=== PATIENT | female | born 1970 | race Caucasian/White ===

== ENCOUNTER 2018-08-01 23:06 | Emergency (ER) | payer MEDICAID ==
[~2018-08-01] VITALS: Ht 172.7 cm; Wt 90.9 kg
[~2018-08-01 23:06] MED LIST: CELEXA; IBU-TAB200 MG PO; LORTAB 5/500 501 TAB PO; MECLIZINE25 MG PO; MILK THISTLE500 MG PO; NAPROSYN500 MG PO; NORCO 325 MG-51 TAB PO; NORCO 325 MG-7.1 TAB PO; PRINIVIL20 MG PO
[2018-08-01] MEDS ORDERED: MULTI VITAMINS1 TAB PO (23:32)
[2018-08-01 23:39] LABS: COLLECTION METHOD CLEAN CATCH
[2018-08-01 23:43] LABS: BASO % 0.4 % (0.0-2.0); EOS # 0.1 (0.0-0.7); EOS % 0.7 % (0-4.0); GRAN # 6.1 (1.4-6.5); HEMATOCRIT 44.9 % (37.0-47.0); HEMOGLOBIN 15.3 g/dl (12.5-16.0); LYMPH # 4.2 (1.2-3.4); LYMPH % 37.6 % (20.0-51.0); MEAN CELL VOLUME 93 fl (80.0-100.0); MEAN CORPUSCULAR HEMOGLOBIN 32 pg (27.0-31.0); MEAN CORPUSCULAR HGB CONC 34 g/dl (33.0-37.0); MEAN PLATELET VOLUME 10.1 fl (7.4-10.4); MONO # 0.7 (0.1-0.6); PLATELET COUNT 170 K/mm3 (130-400); RED BLOOD COUNT 4.82 M/mm3 (4.10-5.30); REDCELL DISTRIBUTION WIDTH-CV 12.5 % (11.5-14.5)
[2018-08-01 23:49] LABS: ALBUMIN 4.6 gm/dL (3.5-5.0); BILIRUBIN,TOTAL 0.5 mg/dL (0.0-1.0); CALCIUM 9.9 mg/dL (8.4-10.2); CREATININE, serum 0.66 mg/dL (0.52-1.25); MAGNESIUM 2.1 mg/dL (1.6-2.3); PHOSPHOROUS 4.7 mg/dL (2.5-4.5); TOTAL PROTEIN 8.1 gm/dL (6.4-8.2)
[2018-08-02 00:05] LABS: PROLACTIN 21.3 ng/mL (3.0-18.6)
[2018-08-02 00:11] LABS: TRICYCLIC ANTIDEPRESS URINE NEGATIVE
[2018-08-02 00:25] LABS: PH 6 (5-8); SQUAMOUS EPITHELIAL None Seen /hpf; URINE APPEARANCE Clear; URINE BACTERIA Rare /hpf; URINE BILIRUBIN Negative (NEGATIVE); URINE BLOOD 1+ (NEGATIVE); URINE COLOR Colorless; URINE GLUCOSE Negative (NEGATIVE); URINE KETONE Negative (NEGATIVE); URINE LEUKOCYTE ESTERASE Negative (NEGATIVE); URINE NITRATE Negative (NEGATIVE); URINE PROTEIN(semi-quant) Negative (NEGATIVE); URINE RBC None Seen /hpf; URINE UROBILINOGEN Negative (NEGATIVE)
[2018-08-02 01:18] VITALS: TEMP 97.7
[2018-08-02] MEDS ORDERED: KEPPRA 500MG500 MG PO (01:33)
[2018-08-02 06:03] VITALS: BP 109/64; PULSE 86
== END 2018-08-02 06:05 | disposition home or self-care (01) ==
LOC: COL.ER 23:06
PROVIDERS: Emergency Medicine
DX: G40.909 Epilepsy, unspecified, not intractable, without status epilepticus (principal); F10.129 Alcohol abuse with intoxication, unspecified; I10 Essential (primary) hypertension; Z90.49 Acquired absence of other specified parts of digestive tract; Y90.8 Blood alcohol level of 240 mg/100 ml or more
CPT/HCPCS: J1953; J2060; J2405; J7030

== ENCOUNTER 2018-11-20 21:59 | Emergency (ER) | payer MEDICAID ==
[~2018-11-20] VITALS: Ht 172.7 cm; Wt 93.6 kg
[~2018-11-20 21:59] MED LIST changes: +KEPPRA 500MG500 MG PO; +MULTI VITAMINS1 TAB PO
[2018-11-20 22:22] LABS: BASO % 0.3 % (0.0-2.0); EOS # 0.1 (0.0-0.7); EOS % 0.8 % (0-4.0); GRAN # 5.3 (1.4-6.5); GRAN % 58.5 % (42.2-75.2); HEMATOCRIT 41.9 % (37.0-47.0); HEMOGLOBIN 14.1 g/dl (12.5-16.0); MEAN CELL VOLUME 95 fl (80.0-100.0); MEAN CORPUSCULAR HEMOGLOBIN 32 pg (27.0-31.0); MEAN CORPUSCULAR HGB CONC 34 g/dl (33.0-37.0); MEAN PLATELET VOLUME 10.7 fl (7.4-10.4); MONO # 0.6 (0.1-0.6); MONO % 7.1 % (1.7-9.3); PLATELET COUNT 156 K/mm3 (130-400); RED BLOOD COUNT 4.41 M/mm3 (4.10-5.30); REDCELL DISTRIBUTION WIDTH-CV 12.3 % (11.5-14.5)
[2018-11-20 22:33] LABS: ALBUMIN 4.2 gm/dL (3.5-5.0); BILIRUBIN,TOTAL 0.5 mg/dL (0.0-1.0); CALCIUM 9.6 mg/dL (8.4-10.2); CREATININE, serum 0.52 (0.52-1.25); POTASSIUM 3.7 mmol/L (3.4-5.0); TOTAL PROTEIN 7.7 gm/dL (6.4-8.2)
[2018-11-20 22:50] LABS: PROLACTIN 57.8 ng/mL (3.0-18.6)
[2018-11-20 23:38] VITALS: BP 117/68; PULSE 77
== END 2018-11-20 23:25 | disposition home or self-care (01) ==
LOC: COL.ER 21:59
PROVIDERS: Emergency Medicine
DX: F10.129 Alcohol abuse with intoxication, unspecified (principal); I10 Essential (primary) hypertension; Z90.49 Acquired absence of other specified parts of digestive tract; Z98.890 Other specified postprocedural states; G40.909 Epilepsy, unspecified, not intractable, without status epilepticus; Y90.7 Blood alcohol level of 200-239 mg/100 ml

== ENCOUNTER 2018-12-01 12:44 | Emergency (ER) | payer MEDICAID ==
[~2018-12-01] VITALS: Ht 172.7 cm; Wt 94.1 kg
[2018-12-01 12:48] VITALS: BP 120/75; TEMP 96.4
[2018-12-01 13:51] VITALS: PULSE 82
== END 2018-12-01 13:53 | disposition home or self-care (01) ==
LOC: COL.ER 12:44
DX: M25.572 Pain in left ankle and joints of left foot (principal); Z90.49 Acquired absence of other specified parts of digestive tract; Z98.51 Tubal ligation status

== ENCOUNTER 2019-02-07 22:01 | Emergency (ER) | payer MEDICAID ==
[~2019-02-07] VITALS: Ht 172.7 cm; Wt 92.7 kg
[2019-02-07 22:05] VITALS: BP 126/82; TEMP 97.2
[2019-02-07] MEDS ORDERED: CELEXA 20MG20 MG/TAB PO (22:50)
[2019-02-07] MEDS ORDERED: PRINZIDE 12.5 M1 TA1 PO (22:50)
[2019-02-07] MEDS ORDERED: KEPPRA250 MG PO (22:50)
[2019-02-07] MEDS ORDERED: NORCO 325 MG-51 TAB PO (23:10)
[2019-02-07 23:29] VITALS: PULSE 94
== END 2019-02-07 23:30 | disposition home or self-care (01) ==
LOC: COL.ER 22:01
DX: S92.351A Displaced fracture of fifth metatarsal bone, right foot, initial encounter for closed fracture (principal); W22.8XXA Striking against or struck by other objects, initial encounter; Y92.009 Unspecified place in unspecified non-institutional (private) residence as the place of occurrence of the external cause

== ENCOUNTER 2019-05-12 13:48 | Emergency (ER) | payer SELFPAY ==
[~2019-05-12] VITALS: Ht 172.7 cm; Wt 90.9 kg
[~2019-05-12 13:48] MED LIST changes: +CELEXA 20MG20 MG/TAB PO; +KEPPRA250 MG PO; +PRINZIDE 12.5 M1 TA1 PO
[2019-05-12 13:52] VITALS: BP 138/89; TEMP 100.4
[2019-05-12] MEDS ORDERED: NEURONTIN300 MG/CAP PO (14:06)
[2019-05-12] MEDS ORDERED: DOXYCYCLINE 10100 MG PO ×2 (15:10→16:47)
[2019-05-12] MEDS ORDERED: AUGMENTIN XR 101 TER PO (15:10)
[2019-05-12 15:16] LABS: BASO % 0.5 % (0.0-2.0); EOS % 0.4 % (0-4.0); GRAN # 5.6 (1.4-6.5); GRAN % 69.5 % (42.2-75.2); HEMATOCRIT 44.3 % (37.0-47.0); HEMOGLOBIN 15.4 g/dl (12.5-16.0); LYMPH # 1.6 (1.2-3.4); LYMPH % 19.8 % (20.0-51.0); MEAN CELL VOLUME 91 fl (80.0-100.0); MEAN CORPUSCULAR HEMOGLOBIN 32 pg (27.0-31.0); MEAN CORPUSCULAR HGB CONC 35 g/dl (33.0-37.0); MEAN PLATELET VOLUME 10.4 fl (7.4-10.4); MONO # 0.8 (0.1-0.6); MONO % 9.6 % (1.7-9.3); PLATELET COUNT 142 K/mm3 (130-400); RED BLOOD COUNT 4.86 M/mm3 (4.10-5.30)
[2019-05-12 15:28] LABS: ALBUMIN 4.5 gm/dL (3.5-5.0); BILIRUBIN,TOTAL 0.8 mg/dL (0.0-1.0); CALCIUM 9.6 mg/dL (8.4-10.2); CREATININE, serum 0.65 (0.52-1.25); POTASSIUM 3.3 mmol/L (3.4-5.0); TOTAL PROTEIN 8.1 gm/dL (6.4-8.2)
[2019-05-12] MEDS ORDERED: ZOFRAN 4MG T4 MG/TAB PO ×2 (15:42→16:47)
[2019-05-12] MEDS ORDERED: AMOXICILLIN 8751 TAB PO (16:47)
[2019-05-12 16:59] VITALS: PULSE 96
--- NOTE | 2019-05-13 15:28 | NUR ---
(05/12) [employer] student and health care social worker responded to a health care social worker consult to the ED for a medication voucher. The patient reports she is no longer employed and sent recertification paperwork to Medicaid. A medication voucher was provided to [employer] in the amount of $270.69. On this day [employer] student contact Madhavi, financial counselor. Madhavi reports the patient's Medicaid is not active. [employer] student attempted to contact the patient to advise her of her Medicaid status. [employer] student left a message.
== END 2019-05-12 16:59 | disposition home or self-care (01) ==
LOC: COL.ER 13:48
PROVIDERS: Emergency Medicine
DX: J18.1 Lobar pneumonia, unspecified organism (principal); I10 Essential (primary) hypertension; Z90.710 Acquired absence of both cervix and uterus
CPT/HCPCS: J7030

== ENCOUNTER 2019-12-02 20:52 | Emergency (ER) | payer MEDICAID ==
[~2019-12-02] VITALS: Ht 172.7 cm; Wt 89.5 kg
[~2019-12-02 20:52] MED LIST changes: +AMOXICILLIN 8751 TAB PO; +AUGMENTIN XR 101 TER PO; +DOXYCYCLINE 10100 MG PO; +NEURONTIN300 MG/CAP PO; +ZOFRAN 4MG T4 MG/TAB PO
[2019-12-02 20:56] VITALS: BP 117/79; TEMP 97.7
[2019-12-02 21:45] VITALS: PULSE 90
== END 2019-12-02 21:50 | disposition home or self-care (01) ==
LOC: COL.ER 20:52
DX: S90.122A Contusion of left lesser toe(s) without damage to nail, initial encounter (principal); I10 Essential (primary) hypertension; F17.210 Nicotine dependence, cigarettes, uncomplicated; Z86.69 Personal history of other diseases of the nervous system and sense organs; W22.8XXA Striking against or struck by other objects, initial encounter; Y92.009 Unspecified place in unspecified non-institutional (private) residence as the place of occurrence of the external cause

== ENCOUNTER → 2020-02-23 | Outpatient (CLI) | payer MEDICAID | LOC: COL.RAD 08:30 | DX: G62.89 Other specified polyneuropathies (principal); M54.17 Radiculopathy, lumbosacral region; M70.71 Other bursitis of hip, right hip; M70.72 Other bursitis of hip, left hip; M51.36 Other intervertebral disc degeneration, lumbar region; M41.86 Other forms of scoliosis, lumbar region; M48.07 Spinal stenosis, lumbosacral region ==

== ENCOUNTER → 2020-04-24 | Outpatient (CLI) | payer OTHER | LOC: COL.LAB 09:00 → COL.RAD 09:18 | DX: Z02.71 Encounter for disability determination (principal); M25.572 Pain in left ankle and joints of left foot; Z98.1 Arthrodesis status ==

== ENCOUNTER 2020-11-30 07:35 | Day surgery (SDC) | payer MEDICAID ==
[~2020-11-30] VITALS: Ht 172.7 cm; Wt 93.4 kg
[2020-11-30] MEDS ORDERED: VITAMIN D250 MCG PO (07:51)
[2020-11-30] MEDS ORDERED: B-121000 MCG PO (07:52)
[2020-11-30] MEDS ORDERED: MAGNESIUM200 MG PO (07:52)
[2020-11-30 08:28] VITALS: BP 108/84; PULSE 79; TEMP 98.4
[2020-11-30 09:05] VITALS: BP 99/52; PULSE 72; TEMP 97.2
[2020-11-30 09:20] VITALS: BP 104/56; PULSE 62
--- NOTE | 2020-11-30 09:26 | NUR ---
0905 PATIENT ARRIVES TO [facility] VIA CART. AMBUL[place] [facility] WITH [facility]. PATIENT'S SPOUSE IS AT CHAIRSIDE. VSS. REPORT AND CARE OF PATIENT RECEIVED FROM [facility]. PATIENT REQUESTS JEYSON AND ASHISH. 09 PATIENT TOLERATED PO WELL. DENIES COMPLAINT. VSS.
[2020-11-30 09:35] VITALS: BP 109/86; PULSE 57
--- NOTE | 2020-11-30 09:40 | NUR ---
0930 IV D/C'D. TOLERATED WELL. D/C INSTRUCTIONS, VERBAL AND WRITTEN. PATIENT VERBALIZED UNDERSTANDING. QUESTIONS INVITED AND ANSWERED. VSS.
--- NOTE | 2020-11-30 09:41 | NUR ---
0944 D/C'D TO POV VIA W/C WITH PATIENT'S SPOUSE.
== END 2020-11-30 09:44 | disposition home or self-care (01) ==
LOC: SDCO 07:35
DX: Z12.11 Encounter for screening for malignant neoplasm of colon (principal); I10 Essential (primary) hypertension; G62.9 Polyneuropathy, unspecified; F17.210 Nicotine dependence, cigarettes, uncomplicated; F41.9 Anxiety disorder, unspecified; F32.9 Major depressive disorder, single episode, unspecified; Z20.822 Contact with and (suspected) exposure to COVID-19; G40.909 Epilepsy, unspecified, not intractable, without status epilepticus; G57.20 Lesion of femoral nerve, unspecified lower limb; Z68.30 Body mass index [BMI] 30.0-30.9, adult; E66.9 Obesity, unspecified; Z79.1 Long term (current) use of non-steroidal anti-inflammatories (NSAID); Z79.899 Other long term (current) drug therapy
CPT/HCPCS: J2704; J7120

== ENCOUNTER 2021-05-06 03:55 | Emergency (ER) | payer MEDICAID ==
[~2021-05-06] VITALS: Ht 172.7 cm; Wt 87.7 kg
[~2021-05-06 03:55] MED LIST changes: +B-121000 MCG PO; +MAGNESIUM200 MG PO; +VITAMIN D250 MCG PO
[2021-05-06 03:57] VITALS: TEMP 97
[2021-05-06 04:23] LABS: BASO % 0.4 % (0.0-2.0); EOS # 0.1 K/mm3 (0.0-0.7); EOS % 1.2 % (0-4.0); GRAN # 4.8 K/mm3 (1.4-6.5); GRAN % 51.3 % (42.2-75.2); HEMATOCRIT 41.7 % (37.0-47.0); HEMOGLOBIN 14.3 g/dl (12.5-16.0); LYMPH # 3.8 K/mm3 (1.2-3.4); LYMPH % 40.7 % (20.0-51.0); MEAN CELL VOLUME 92 fl (80.0-100.0); MEAN CORPUSCULAR HEMOGLOBIN 32 pg (27.0-31.0); MEAN CORPUSCULAR HGB CONC 34 g/dl (33.0-37.0); MEAN PLATELET VOLUME 9.8 fl (7.4-10.4); MONO # 0.6 K/mm3 (0.1-0.6); MONO % 6.1 % (1.7-9.3); PLATELET COUNT 181 K/mm3 (130-400); RED BLOOD COUNT 4.52 M/mm3 (4.10-5.30)
[2021-05-06 04:48] LABS: BILIRUBIN,TOTAL 0.5 mg/dL (0.2-1.2); CALCIUM 9.5 mg/dL (8.4-10.2); CREATININE, serum 0.74 mg/dL (0.57-1.11); POTASSIUM 3.8 mmol/L (3.5-4.5); TOTAL PROTEIN 7.6 gm/dL (6.2-8.1)
[2021-05-06] MEDS ORDERED: KEPPRA250 MG PO (04:53)
[2021-05-06 06:14] VITALS: BP 134/78; PULSE 71
== END 2021-05-06 06:15 | disposition home or self-care (01) ==
LOC: COL.ER 03:55
PROVIDERS: Emergency Medicine
DX: G40.909 Epilepsy, unspecified, not intractable, without status epilepticus (principal); I10 Essential (primary) hypertension; F41.9 Anxiety disorder, unspecified; Z32.02 Encounter for pregnancy test, result negative; Z79.899 Other long term (current) drug therapy
CPT/HCPCS: J1953; J2060; J7030

== ENCOUNTER 2021-08-18 08:04 | Emergency (ER) | payer MEDICAID ==
[~2021-08-18] VITALS: Ht 172.7 cm; Wt 90.0 kg
[2021-08-18 08:08] VITALS: TEMP 97.9
[2021-08-18] MEDS ORDERED: FLEXERIL 1010 MG/TAB PO (08:41)
[2021-08-18] MEDS ORDERED: MOTRIN 800800 MG/TAB PO (08:41)
[2021-08-18] MEDS ORDERED: PERCOCET 325 MG1 TA2 PO (08:41)
[2021-08-18 08:57] VITALS: BP 123/73; PULSE 78
== END 2021-08-18 08:57 | disposition home or self-care (01) ==
LOC: COL.ER 08:04
DX: M54.16 Radiculopathy, lumbar region (principal); I10 Essential (primary) hypertension; F41.9 Anxiety disorder, unspecified; G62.9 Polyneuropathy, unspecified; F17.210 Nicotine dependence, cigarettes, uncomplicated; Z79.899 Other long term (current) drug therapy

== ENCOUNTER 2021-08-28 07:51 | Emergency (ER) | payer MEDICAID ==
[~2021-08-28] VITALS: Ht 172.7 cm; Wt 89.5 kg
[~2021-08-28 07:51] MED LIST changes: +FLEXERIL 1010 MG/TAB PO; +MOTRIN 800800 MG/TAB PO; +PERCOCET 325 MG1 TA2 PO
[2021-08-28 08:14] VITALS: TEMP 98.1
[2021-08-28] MEDS ORDERED: LIDODERM 5% PATC1 EA TP (08:35)
[2021-08-28] MEDS ORDERED: ROBAXIN 75750 MG/TAB PO (08:35)
[2021-08-28] MEDS ORDERED: MEDROL 4MG DOSPA4 MG PO (08:35)
[2021-08-28] MEDS ORDERED: NORCO 325 MG-51 TAB PO (08:35)
[2021-08-28 08:43] VITALS: BP 120/79; PULSE 93
== END 2021-08-28 08:43 | disposition home or self-care (01) ==
LOC: COL.ER 07:51
DX: M54.50 Low back pain, unspecified (principal); I10 Essential (primary) hypertension; F41.9 Anxiety disorder, unspecified; F17.200 Nicotine dependence, unspecified, uncomplicated; Z79.899 Other long term (current) drug therapy

== ENCOUNTER 2021-09-09 03:44 | Emergency (ER) | payer MEDICAID ==
[~2021-09-09] VITALS: Ht 172.7 cm; Wt 89.5 kg
[~2021-09-09 03:44] MED LIST changes: +LIDODERM 5% PATC1 EA TP; +MEDROL 4MG DOSPA4 MG PO; +ROBAXIN 75750 MG/TAB PO
[2021-09-09 03:45] VITALS: TEMP 97.8
[2021-09-09] MEDS ORDERED: KEPPRA250 MG PO (04:23)
[2021-09-09 04:39] VITALS: BP 107/63; PULSE 83
== END 2021-09-09 04:39 | disposition home or self-care (01) ==
LOC: COL.ER 03:44
DX: G40.909 Epilepsy, unspecified, not intractable, without status epilepticus (principal); I10 Essential (primary) hypertension; Z79.899 Other long term (current) drug therapy
CPT/HCPCS: J1953

== ENCOUNTER 2021-12-03 10:07 | Emergency (ER) | payer MEDICARE, MEDICAID ==
[~2021-12-03] VITALS: Ht 172.7 cm; Wt 89.5 kg
[2021-12-03 12:44] VITALS: BP 136/64; PULSE 67; TEMP 98.4
[2021-12-03] MEDS ORDERED: NAPROSYN500 MG PO (12:44)
== END 2021-12-03 12:51 | disposition home or self-care (01) ==
LOC: COL.ER 10:07
DX: M25.561 Pain in right knee (principal); F17.200 Nicotine dependence, unspecified, uncomplicated
CPT/HCPCS: J1885

== ENCOUNTER 2021-12-05 22:47 | Emergency (ER) | payer MEDICARE, MEDICAID ==
[~2021-12-05] VITALS: Ht 172.7 cm; Wt 89.5 kg
[2021-12-05 22:49] VITALS: TEMP 98.1
[2021-12-05 23:32] VITALS: BP 112/78; PULSE 76
== END 2021-12-05 23:32 | disposition home or self-care (01) ==
LOC: COL.ER 22:47
DX: R56.9 Unspecified convulsions (principal); Z28.310 Unvaccinated for COVID-19

== ENCOUNTER 2022-02-16 12:15 | Emergency (ER) | payer MEDICARE, MEDICAID ==
[~2022-02-16] VITALS: Ht 172.7 cm; Wt 87.3 kg
[2022-02-16 12:35] VITALS: BP 142/91; TEMP 98.1
[2022-02-16] MEDS ORDERED: DOXYCYCLINE HY100 MG PO (13:42)
[2022-02-16] MEDS ORDERED: FLAGYL500 MG PO (13:42)
[2022-02-16 14:20] VITALS: PULSE 76
== END 2022-02-16 14:20 | disposition home or self-care (01) ==
LOC: COL.ER 12:15
DX: N73.9 Female pelvic inflammatory disease, unspecified (principal); F17.210 Nicotine dependence, cigarettes, uncomplicated; Z88.1 Allergy status to other antibiotic agents
CPT/HCPCS: J0696

== ENCOUNTER → 2022-02-21 | Outpatient (CLI) | payer MEDICARE, MEDICAID ==
[~2022-02-21] MED LIST changes: +DOXYCYCLINE HY100 MG PO; +FLAGYL500 MG PO
== END ==
LOC: COL.RAD 11:29
DX: R31.9 Hematuria, unspecified (principal)

== ENCOUNTER 2022-04-12 14:07 | Emergency (ER) | payer MEDICARE, MEDICAID | END 2022-04-12 14:29 | disposition left against medical advice (07) | LOC: COL.ER 14:07 | DX: R69 Illness, unspecified (principal) ==

== ENCOUNTER 2022-04-18 08:27 | Observation (INO) | payer MEDICARE, MEDICAID ==
[~2022-04-18] VITALS: Ht 172.7 cm; Wt 87.3 kg
[2022-04-18 09:47] LABS: BASO % 0.4 % (0.0-2.0); EOS # 0.2 K/mm3 (0.0-0.7); EOS % 2.3 % (0.0-4.0); GRAN # 4.5 K/mm3 (1.4-6.5); GRAN % 58.4 % (42.2-75.2); HEMATOCRIT 39.9 % (37.0-47.0); HEMOGLOBIN 13.8 g/dl (12.5-16.0); LYMPH # 2.3 K/mm3 (1.2-3.4); LYMPH % 29.8 % (20.0-51.0); MEAN CELL VOLUME 91 fl (80.0-100.0); MEAN CORPUSCULAR HEMOGLOBIN 32 pg (27-31); MEAN CORPUSCULAR HGB CONC 35 g/dl (33.0-37.0); MEAN PLATELET VOLUME 10.5 fl (7.4-10.4); MONO # 0.7 K/mm3 (0.1-0.6); MONO % 8.7 % (1.7-9.3); PLATELET COUNT 159 K/mm3 (130-400); RED BLOOD COUNT 4.37 M/mm3 (4.10-5.30); REDCELL DISTRIBUTION WIDTH-CV 12.5 % (11.5-14.5)
[2022-04-18 09:53] LABS: ANION GAP 8 mmol/L (7-16); BLOOD UREA NITROGEN 15 mg/dL (10-20); CALCIUM 9.6 mg/dL (8.4-10.2); CARBON DIOXIDE 28 mmol/L (22-29); CHLORIDE 105 mmol/L (98-107); CREATININE, serum 0.76 mg/dL (0.57-1.11); GLUCOSE 89 mg/dL (70-99); POTASSIUM 4.2 mmol/L (3.5-4.5); SODIUM 141 mmol/L (136-145)
[2022-04-18 10:02] LABS: TROPONIN-I < 0.010 ng/mL (0.00-0.033)
[2022-04-18 14:55] VITALS: BP 138/74; PULSE 74; TEMP 98.1
[2022-04-18] MEDS ORDERED: VITAMIND3 5000 PO (15:12)
--- NOTE | 2022-04-18 15:20 | NUR ---
PATIENT PASSED SWALLOW EVAL. WATER WITH/WITHOUT STRAW, APPLESAUCE, CRACKERS, ALL TOLDERATED WITH OUT ANY ISSUES OR COUGHING. PER ORDER DIET PLACED
[2022-04-18] MEDS ORDERED: AMITRIPTYLINE H25 M1 PO (17:15)
[2022-04-18] MEDS ORDERED: ATARAX 10MG10 MG/TAB PO (17:16)
--- NOTE | 2022-04-18 18:45 | NUR ---
PATIENT RESTING IN BED WITH NO COMPLAINTS OR NEEDS AT THIS TIME. FAMILY IN ROOM. BELONGINGS AND CALL LIGHT WITHIN REACH. REPORT GIVEN TO NIGHT RN.
[2022-04-18 19:26] VITALS: BP 134/97; PULSE 90; TEMP 97.6
--- NOTE | 2022-04-18 22:29 | NUR ---
Patient assessed at approximately 1920. Had complained of severe headache. Called Ayde, and received new order for PRN Acetaminophen, and given per orders. Denies any other pain and discomfort. Peripheral INT to right AC. Denies SOB and dyspnea. Telemetry in place. Has been able to ambulate to bathroom, gate slow, but steady. Denies havig any other questions, needs, or concerns at this time. In bed with call light within reach.
[2022-04-18 23:40] VITALS: BP 138/88; PULSE 96; TEMP 98.3
[2022-04-19 04:11] VITALS: BP 121/73; PULSE 102; TEMP 99.1
[2022-04-19 05:43] LABS: BASO % 0.3 % (0.0-2.0); EOS % 0.4 % (0.0-4.0); GRAN # 8.5 K/mm3 (1.4-6.5); GRAN % 82.4 % (42.2-75.2); HEMATOCRIT 41.4 % (37.0-47.0); HEMOGLOBIN 14.3 g/dl (12.5-16.0); LYMPH # 0.9 K/mm3 (1.2-3.4); LYMPH % 8.8 % (20.0-51.0); MEAN CELL VOLUME 91 fl (80.0-100.0); MEAN CORPUSCULAR HEMOGLOBIN 31 pg (27-31); MEAN CORPUSCULAR HGB CONC 35 g/dl (33.0-37.0); MEAN PLATELET VOLUME 10.7 fl (7.4-10.4); MONO # 0.8 K/mm3 (0.1-0.6); MONO % 7.8 % (1.7-9.3); PLATELET COUNT 145 K/mm3 (130-400); RED BLOOD COUNT 4.56 M/mm3 (4.10-5.30); REDCELL DISTRIBUTION WIDTH-CV 12.5 % (11.5-14.5)
--- NOTE | 2022-04-19 05:53 | NUR ---
Patient's symptoms of numbness and tingling have resolved during the night. Denies numbness and tingling, as well as weakness to BUE and BLE. Voices no questions, needs, or concerns at this time. Denies having pain and discomfort. In bed with call light within reach.
[2022-04-19 06:05] LABS: CALCIUM 9.4 mg/dL (8.4-10.2); CHOLESTEROL RISK RATIO 4.3; CREATININE, serum 0.73 mg/dL (0.57-1.11)
[2022-04-19 07:09] VITALS: BP 109/75; PULSE 96; TEMP 98.9
--- NOTE | 2022-04-19 08:00 | NUR ---
Patient laying in bed, A&Ox4. VSS. IV CDI. Reports having a headache. Denies all other pain and discomfort. No further needs expressed. Call light within reach.
--- NOTE | 2022-04-19 10:00 | NUR ---
Discharge paperwork reviewed with the patient. Patient verbalized an understanding to follow doctors orders. IV removed, tip intact. Patient walked independently with nursing staff to vehicle. No further needs expressed.
--- NOTE | 2022-04-19 12:38 | NUR ---
Primary nurse was assisted with [id number] patient care by [employer] student Hilda Porter and [employer] instructor Britt SUNG RN.
== END 2022-04-19 10:00 | disposition home or self-care (01) ==
LOC: COL.ER 08:27 → MEDICAL 14:02
PROVIDERS: Physician Assistant; ADMIT Emergency Medicine
DX: R20.0 Anesthesia of skin (principal); R00.2 Palpitations; J01.30 Acute sphenoidal sinusitis, unspecified; I10 Essential (primary) hypertension; G40.909 Epilepsy, unspecified, not intractable, without status epilepticus; G62.9 Polyneuropathy, unspecified; N30.10 Interstitial cystitis (chronic) without hematuria; F17.210 Nicotine dependence, cigarettes, uncomplicated; I37.1 Nonrheumatic pulmonary valve insufficiency; Z79.899 Other long term (current) drug therapy
CPT/HCPCS: A9575; G0378; Q9967

== ENCOUNTER 2022-11-01 00:37 | Emergency (ER) | payer MEDICARE, MEDICAID ==
[~2022-11-01] VITALS: Ht 172.7 cm; Wt 90.9 kg
[~2022-11-01 00:37] MED LIST changes: +AMITRIPTYLINE H25 M1 PO; +ATARAX 10MG10 MG/TAB PO; +VITAMIND3 5000 PO
[2022-11-01 00:38] VITALS: TEMP 97.8
[2022-11-01 01:00] LABS: BASO # 0.1 K/mm3 (0.0-0.2); BASO % 0.5 % (0.0-2.0); EOS # 0.1 K/mm3 (0.0-0.7); EOS % 0.6 % (0.0-4.0); GRAN # 5.7 K/mm3 (1.4-6.5); GRAN % 55.4 % (42.2-75.2); HEMATOCRIT 39.9 % (37.0-47.0); LYMPH # 3.8 K/mm3 (1.2-3.4); LYMPH % 36.8 % (20.0-51.0); MEAN CELL VOLUME 93 fl (80.0-100.0); MEAN CORPUSCULAR HEMOGLOBIN 33 pg (27-31); MEAN CORPUSCULAR HGB CONC 35 g/dl (33.0-37.0); MEAN PLATELET VOLUME 10.3 fl (7.4-10.4); MONO # 0.6 K/mm3 (0.1-0.6); MONO % 6.1 % (1.7-9.3); PLATELET COUNT 210 K/mm3 (130-400); RED BLOOD COUNT 4.31 M/mm3 (4.10-5.30); REDCELL DISTRIBUTION WIDTH-CV 12.4 % (11.5-14.5)
[2022-11-01 01:16] LABS: ALBUMIN 3.9 gm/dL (3.5-5.0); BILIRUBIN,TOTAL 0.4 mg/dL (0.2-1.2); CALCIUM 9.5 mg/dL (8.4-10.2); CREATININE, serum 0.83 mg/dL (0.57-1.11); POTASSIUM 3.4 mmol/L (3.5-4.5); TOTAL PROTEIN 7.4 gm/dL (6.2-8.1)
[2022-11-01 01:36] VITALS: BP 105/76; PULSE 74
== END 2022-11-01 01:36 | disposition home or self-care (01) ==
LOC: COL.ER 00:37
PROVIDERS: Personal Emergency Response Attendant
DX: R56.9 Unspecified convulsions (principal); F10.129 Alcohol abuse with intoxication, unspecified; F17.200 Nicotine dependence, unspecified, uncomplicated; Y90.8 Blood alcohol level of 240 mg/100 ml or more; Z91.14 Patient's other noncompliance with medication regimen

== ENCOUNTER 2024-02-14 23:33 | Emergency (ER) | payer SELFPAY ==
[~2024-02-14] VITALS: Ht 172.7 cm; Wt 81.8 kg
[2024-02-14 23:34] VITALS: TEMP 97.5
[2024-02-14 23:46] LABS: BASO % 0.4 % (0.0-2.0); EOS # 0.1 K/mm3 (0.0-0.7); EOS % 0.6 % (0.0-4.0); GRAN # 4.2 K/mm3 (1.4-6.5); GRAN % 53.5 % (42.2-75.2); HEMATOCRIT 42.3 % (37.0-47.0); HEMOGLOBIN 14.3 g/dl (12.5-16.0); LYMPH # 3.1 K/mm3 (1.2-3.4); LYMPH % 39.8 % (20.0-51.0); MEAN CELL VOLUME 94 fl (80.0-100.0); MEAN CORPUSCULAR HEMOGLOBIN 32 pg (27-31); MEAN CORPUSCULAR HGB CONC 34 g/dl (33.0-37.0); MONO # 0.4 K/mm3 (0.1-0.6); MONO % 5.6 % (1.7-9.3); PLATELET COUNT 185 K/mm3 (130-400); RED BLOOD COUNT 4.51 M/mm3 (4.10-5.30); REDCELL DISTRIBUTION WIDTH-CV 12.2 % (11.5-14.5)
[2024-02-14 23:52] LABS: INR 1.1 (0.8-3.0); PROTHROMBIN TIME 11.9 SECONDS (9.7-12.8)
[2024-02-14 23:55] LABS: PARTIAL THROMBOPLASTIN TIME 30.2 SECONDS (26.0-37.0)
[2024-02-15 00:05] LABS: ALANINE AMINOTRANSFERASE 39 U/L (0-55); ALBUMIN 4.1 g/dL (3.5-5.0); ALKALINE PHOSPHATASE 113 U/L (40-150); ANION GAP 11 mmol/L (7-16); AST,SGOT 26 U/L (5-34); BILIRUBIN,TOTAL 0.5 mg/dL (0.2-1.2); BLOOD UREA NITROGEN 10 mg/dL (10-20); CALCIUM 9.9 mg/dL (8.4-10.2); CHLORIDE 105 mEq/L (98-107); CREATININE, serum 0.78 mg/dL (0.57-1.11); GLUCOSE 149 mg/dL (70-99); POTASSIUM 3.6 mEq/L (3.5-4.5); SODIUM 143 mEq/L (136-145); TOTAL PROTEIN 7.4 g/dl (6.2-8.1)
[2024-02-15 00:12] LABS: TROPONIN-I < 0.010 ng/mL (0.00-0.033)
[2024-02-15] MEDS ORDERED: levETIRAcetam 500 MG TAB PO ONE (00:30)
[2024-02-15 00:31] VITALS: BP 106/76; PULSE 78
== END 2024-02-15 00:31 | disposition home or self-care (01) ==
LOC: COL.ER 23:33
PROVIDERS: Emergency Medicine
DX: G40.909 Epilepsy, unspecified, not intractable, without status epilepticus (principal); R07.89 Other chest pain; F17.210 Nicotine dependence, cigarettes, uncomplicated; F17.290 Nicotine dependence, other tobacco product, uncomplicated; Z79.899 Other long term (current) drug therapy